=== PATIENT | female | born 1980 | race African-American/Black ===

== ENCOUNTER 2020-04-21 01:21 | Emergency (ER) | payer BC ==
--- NOTE | 2020-04-21 01:34 | ER Document Report ---
ED Medical Screen (RME) - General Chief Complaint: Chest Pain Stated Complaint: CHEST PAIN Notes: Patient is a 39-year-old -[place] female with a history of atrial fibrillation who presents to the emergency department with a chief complaint of chest pain. She reports chest pain began last night. Describes it as sharp in the left anterior chest. States it is waxed and waned since last night. States at some point during the chest pain she did feel slightly short of breath but that has passed. She states she is also had some episodes of feeling lightheaded. She denies any other pain, complaints or concerns at this time. I have treated and performed a rapid initial assessment of this patient. A comprehensive ED assessment and evaluation of the patient, analysis of test results and completion of medical decision making process will be conducted by additional ED providers. PHYSICAL EXAMINATION: GENERAL: Well-appearing, well-nourished and in no acute distress. A&Ox4. Answers questions appropriately.
[2020-04-21 02:09] LABS: ABSOLUTE LYMPHOCYTES (AUTO) 1.9 10^3/uL (0.5-4.7); ABSOLUTE MONOCYTES (AUTO) 0.4 10^3/uL (0.1-1.4); SEGMENTED NEUTROPHILS % (AUTO) 57.4 % (42-78); TOTAL CELLS COUNTED % (AUTO) 100 %
[2020-04-21 02:16] LABS: INTERNATIONAL RATION (INR) 0.95; PROTHROMBIN TIME 12.9 SEC (11.4-15.4)
[2020-04-21 02:17] LABS: PARTIAL THROMBOPLASTIN TIME 32.8 SEC (23.5-35.8)
[2020-04-21 02:25] LABS: ALBUMIN 4.1 g/dL (3.5-5.0); ALKALINE PHOSPHATASE 110 U/L (38-126); ANION GAP 9 (5-19); ASPARTATE AMINO TRANSFERASE 23 U/L (14-36); BILIRUBIN,DIRECT 0.3 mg/dL (0.0-0.4); BILIRUBIN,TOTAL 0.4 mg/dL (0.2-1.3); BLOOD UREA NITROGEN 19 mg/dL (7-20); CALCIUM 9.4 mg/dL (8.4-10.2); CARBON DIOXIDE 27 mmol/L (22-30); CHLORIDE 104 mmol/L (98-107); GLUCOSE 104 mg/dL (75-110); POTASSIUM 3.9 mmol/L (3.6-5.0); TOTAL PROTEIN 6.8 g/dL (6.3-8.2)
[2020-04-21 02:28] LABS: ABSOLUTE EOSINOPHILS # (AUTO) 0.1 10^3/uL (0.0-0.6); ABSOLUTE NEUT (AUTO) 3.4 10^3/uL (1.7-8.2); BASOPHILS % (AUTO) 0.7 % (0-2); EOSINOPHILS % (AUTO) 2.5 % (0-6); HEMATOCRIT 36.1 % (36.0-47.0); HEMOGLOBIN 12.3 g/dL (12.0-15.5); LYMPHOCYTES % (AUTO) 32.5 % (13-45); MEAN CORPUSCULAR HEMOGLOBIN 28.6 pg (27.0-33.4); MEAN CORPUSCULAR HGB CONC 34.1 g/dL (32.0-36.0); MEAN CORPUSCULAR VOLUME 84 fl (80-97); MONOCYTES % (AUTO) 6.9 % (3-13); PLATELET COUNT 298 10^3/uL (150-450); RED BLOOD COUNT 4.29 10^6/uL (3.72-5.28); RED CELL DISTRIBUTION WIDTH 13.3 % (11.5-14.0); WHITE BLOOD COUNT 5.8 10^3/uL (4.0-10.5)
[2020-04-21] MEDS ORDERED: ASPIRIN 81 MG TABLET, CHEWABLE PO ONE (02:31)
--- NOTE | 2020-04-21 02:43 | ER Document Report ---
ED General - General Chief Complaint: Chest Pain Stated Complaint: CHEST PAIN Time Seen by Provider: 04/21/20 02:12 Notes: Patient is a 39-year-old female that comes emergency department for chief complaint of chest pain in the center and left side of her chest for the past 2 days. She states pain is intermittent and sharp. She denies any exacerbating or relieving factors, she denies cough, injury, shortness of breath, fever/chills, nausea/vomiting, flank pain, abdominal pain. She reports a past medical history of hypertension, medicated with lisinopril. She states she was told she went to atrial fibrillation once but she does not follow with cardiology, she did not take medications for this, she states she was cleared from cardiology. She denies smoking, alcohol, recreational drugs. She denies personal family history of NV or blood clot. She denies recent travel or surgery, denies lower extremity swelling. She is not on any hormone use. - Related Data Allergies/Adverse Reactions: No Known Allergies Allergy (Verified 04/21/20 03:04) Home Medications: lisinopril Past Medical History - General Information source: Patient - Social History Smoking Status: Never Smoker Chew tobacco use (# tins/day): No Frequency of alcohol use: Occasional Drug Abuse: None Lives with: Family Family History: Reviewed & Not Pertinent Patient has homicidal ideation: No - Immunizations Immunizations up to date: Yes Hx Diphtheria, Pertussis, Tetanus Vaccination: Yes Review of Systems - Review of Systems Constitutional: No symptoms reported EENT: No symptoms reported Cardiovascular: See HPI Respiratory: See HPI Gastrointestinal: No symptoms reported Genitourinary: No symptoms reported Female Genitourinary: No symptoms reported Musculoskeletal: No symptoms reported Skin: No symptoms reported Hematologic/Lymphatic: No symptoms reported Neurological/Psychological: No symptoms reported Physical Exam - Vital signs Vitals: Temp Pulse Resp BP Pulse Ox 98.0 F 74 16 151/89 H 99 04/21/20 01:23 04/21/20 01:23 04/21/20 01:23 04/21/20 01:23 04/21/20 01:23 - Notes Notes: GENERAL: Alert, interacts well. No acute distress. HEAD: Normocephalic, atraumatic. EYES: Pupils equal, round, and reactive to light. Extraocular movements intact. ENT: Oral mucosa moist, tongue midline. Oropharynx unremarkable. Airway patent. NECK: Full range of motion. Supple. Trachea midline. No lymphadenopathy. LUNGS: Clear to auscultation bilaterally, no wheezes, rales, or rhonchi. No respiratory distress. Tenderness over the chest wall over the sternal border on both sides, this is reproducible and specific. No erythema, crepitus, severe tenderness, or signs of trauma. HEART: Regular rate and rhythm. No murmur ABDOMEN: Soft, non-tender. Non-distended. EXTREMITIES: Moves all 4 extremities spontaneously. No edema, normal radial and dorsalis pedis pulses bilaterally. No cyanosis. BACK: no cervical, thoracic, lumbar midline tenderness. No saddle anesthesia, normal distal neurovascular exam. Moves all extremities in full range of motion. NEUROLOGICAL: Alert and oriented x3. Normal speech. Cranial nerves II through XII grossly intact. Strength 5/5 in all extremities. PSYCH: Normal affect, normal mood. SKIN: Warm, dry, normal turgor. No rashes or lesions noted. Course - Re-evaluation Re-evalutation: Patient is smiling, talkative, well-appearing. She does have elevated blood pressure although this is not severe, this is chronic for her. Remaining vital signs unremarkable. Chest x-ray, EKG with no acute findings, CBC, chemistry, troponin unremarkable, test is negative. Patient also has very specific reproducible chest wall tenderness along the sternal border bilaterally. Symptoms have been intermittent for couple of days, sharp, atypical. No lower extremity swelling, PERC score is negative. Heart score is less than 3. Troponin cycled and negative. I discussed in detail with patient her results. This appears to be chest wall pain based on her evaluation and work-up, I discussed treatment options which were provided and discussed expectations, follow-up, return precautions. Patient states appreciation and agreement. Stable and well-appearing at time of discharge. - Vital Signs Vital signs: Temp Pulse Resp BP Pulse Ox 98.0 F 74 16 163/105 H 100 04/21/20 01:34 04/21/20 01:23 04/21/20 05:31 04/21/20 05:31 04/21/20 05:31 - Laboratory Result Diagrams: 04/21/20 01:45 04/21/20 01:45 Laboratory results interpreted by me: 04/21/20 01:45 Est GFR (MDRD) Non-Af 52 L - EKG Interpretation by Me Additional EKG results interpreted by me: EKG shows sinus rhythm at a rate of 70, QTc 462, normal axis, no T wave inversions or ST segment changes in consecutive leads Discharge - Discharge Clinical Impression: Chest wall pain Chest pain Qualifiers: Chest pain type: unspecified Qualified Code(s): R07.9 - Chest pain, unspecified Condition: Stable Disposition: HOME, SELF-CARE Additional Instructions: Your work-up today including your heart work-up do not show any concerning findings. Based on your evaluation this appears to be pain along your sternum and along the the cartilage in your chest, this is called costochondritis. This can take time to resolve, I recommend warm compresses, the anti-inflammatory as prescribed, the muscle relaxer as prescribed especially to help you sleep. Follow-up with primary care. Return if you worsen including severe worsening pain, fever, difficulty breathing, passing out, or any other concerning symptoms. Prescriptions: Cyclobenzaprine HCl 1 - 2 tab PO Q8H PRN #20 tablet PRN Reason: Naproxen 500 mg PO BID PRN #20 tablet PRN Reason: Forms: Return to Work
--- NOTE | 2020-04-21 02:54 | RADIOLOGY REPORT (SQ) ---
EXAM DESCRIPTION: XR CHEST 1 VIEW COMPLETED DATE/TME: 04/21/2020 01:32 CLINICAL HISTORY: 39 years, Female, cp COMPARISON: None. NUMBER OF VIEWS: One TECHNIQUE: AP view chest LIMITATIONS: None. FINDINGS: Lungs are clear. The heart is normal in size. No pneumothorax or pleural effusion. Bones are unremarkable IMPRESSION: No acute cardiopulmonary abnormality. copyright 2010 [employer]- All Rights Reserved
[2020-04-21 06:17] VITALS: BP 163/105
--- NOTE | 2020-04-21 09:10 | EKG REPORT ---
SEVERITY:- BORDERLINE ECG - SINUS RHYTHM PROBABLE LEFT ATRIAL ABNORMALITY : Confirmed by: Magdalena Nunn MD 21-Apr-2020 09:10:07
== END 2020-04-21 06:21 | disposition home or self-care (01) ==
LOC: ER 01:21
DX: R07.89 Other chest pain (principal); I10 Essential (primary) hypertension; Z79.899 Other long term (current) drug therapy
CPT/HCPCS: 36415; 71045; 80053; 84484; 84703; 85025; 85610; 85730; 93005; 93010; 99285